=== PATIENT | female | born 1970 | race Two or more races ===

== ENCOUNTER 2022-10-03 16:01 | Emergency (ER) | payer MEDICAID ==
[~2022-10-03] VITALS: Ht 167.6 cm; Wt 124.1 kg
[2022-10-03 16:31] VITALS: BP 127/91
[2022-10-03] MEDS ORDERED: cefTRIAXone SOD 1,000 MG VL IM ONE (16:45)
[2022-10-03] MEDS ORDERED: CEPH500C PO (17:01)
[2022-10-03] MEDS ORDERED: LIDO2SOL26 MT (17:01)
[2022-10-03] MEDS ORDERED: TRIA0.1O TOP (17:01)
== END 2022-10-03 17:28 | disposition home or self-care (01) ==
LOC: ER 16:01
DX: J03.90 Acute tonsillitis, unspecified (principal); L30.1 Dyshidrosis [pompholyx]
CPT/HCPCS: 96372; 99283; J0696

== ENCOUNTER 2024-08-20 15:20 | Emergency (ER) | payer BC, OTHER ==
[~2024-08-20] VITALS: Ht 172.7 cm; Wt 130.2 kg
[~2024-08-20 15:20] MED LIST: CEPH500C PO; LIDO2SOL26 MT; TRIA0.1O TOP
--- NOTE | 2024-08-20 16:12 | ED.PDOC ---
HPI (NEURO) HPI Comments 53 year old female presents to the ED with chief complaint of high blood pressure. Patient reports that she has been experiencing dizziness with associated headache for the past 2 weeks. Patient relays that she visited urgent care today for a new complaint of blurred vision that occurred, however, she was advised to come to the ED after having a BP in the 170s systolically. Patient states they gave her 0.2mg of Clonidine and since then she has had mild relief in her blurred vision and dizziness. Patient denies being admitted at this time due to not having anyone to take care of her children as of now. Patient denies any SOB, nausea, chest pain, fever, chills, or chest pain. Time Seen by MD: 16:01 Primary Care Provider: NONE Reviewed Notes: Nurses Notes, Medications, Allergies Information Source: Patient Mode of Arrival: Ambulatory Severity: Mild Dizziness/Weakness Severity: Does not affect activitie Headache Severity: Moderate Timing: Days Duration: Since onset Prehospital treatment: None Seizure Quality: Shaking Headache Quality: Aching Headache Location: Generalized Onset: At rest Circumstances: Spontaneous Symptoms: Other (Dizzy) History of: None Associated Signs and Symptoms: Headache Past Medical History PAST MEDICAL HISTORY: Denies Surgical History: Denies all surgeries HEALTH EDITOR History: Denies all HEALTH EDITOR Hx Family History Family History: Reviewed,noncontributory to illness Social History Smoker: Non-Smoker Alcohol: Denies ETOH Use Drugs: Denies Drug Use Lives In: Home Constitutional: denies: chills, diaphoresis, fatigue, fever, malaise, sweats, weakness, others EENTM: reports: blurred vision; denies: double vision, ear bleeding, ear discharge, ear drainage, ear pain, ear ringing, eye pain, eye redness, hearing loss, mouth pain, mouth swelling, nasal discharge, nose bleeding, nose congestion, nose pain, photophobia, tearing, throat pain, throat swelling, voice changes, others Respiratory: denies: cough, hemoptysis, orthopnea, SOB at rest, shortness of breath, SOB with excertion, stridor, wheezing, others Cardiovascular: denies: chest pain, dizzy spells, diaphoresis, Dyspnea on exertion, edema, irregular heart beat, left arm pain, lightheadedness, palpitations, PND, syncope, others Gastrointestinal: denies: abdomen distended, abdominal pain, blood streaked bowels, constipated, diarrhea, dysphagia, difficulty swallowing, hematemesis, melena, nausea, poor appetite, poor fluid intake, rectal bleeding, rectal pain, vomiting, others Genitourinary: denies: abnormal vagina bleeding, burning, dyspareunia, dysuria, flank pain, frequency, hematuria, incontinence, pain, , vagina discharge, urgency, others Neurological: reports: dizziness, headache; denies: fainting, left sided numbness, left sided weakness, numbness, paresthesia, pre-existing deficit, right sided numbness, right sided weakness, seizure, speech problems, tingling, tremors, weakness, others Musculoskeletal: denies: back pain, gout, joint pain, joint swelling, muscle pain, muscle stiffness, neck pain, others Integumetry: denies: bruises, change in color, change in hair/nails, dryness, laceration, lesions, lumps, rash, wounds, others Allergic/Immunocompromised: denies: Difficulty Healing, Frequent Infections, Hives, Itching, others Hematologic/Lymphatic: denies: anemia, blood clots, easy bleeding, easy bruising, swollen glands, others Endocrine: denies: excessive hunger, excessive sweating, excessive thirst, excessive urination, flushing, intolerance to cold, intolerance to heat, unexplained weight gain, unexplained weight loss, others Psychiatric: denies: anxiety, bipolar disorder, depression, hopeless, panic disorder, schizophrenia, sleepless, suicidal, others All Other Systems: Reviewed and Negative Physical Exam General Appearance: No Apparent Distress, Normal HEENT: Normal ENT Inspection, Pharynx Normal, TMs Normal Neck: Full Range of Motion, Non-Tender, Normal, Normal Inspection Respiratory: Chest Non-Tender, Lungs Clear, No Accessory Muscle Use, No Respiratory Distress, Normal Breath Sounds Cardiovascular: No Edema, No JVD, No Murmur, No Gallop, Normal Peripheral Pulses, Regular Rate/Rhythm Breast Exam: Deferred Gastrointestinal: No Organomegaly, Non Tender, No Pulsatile Mass, Normal Bowel Sounds, Soft Genitalia: Deferred Pelvic: Deferred Rectal: Deferred Extremities: No calf tenderness, Normal capillary refill, Normal inspection, Normal range of motion, Non-tender, No pedal edema Musculoskeletal : Apperance: Normal Neurologic: Alert, sheet folder II-XII nml as Tested, No Motor Deficits, Normal Affect, Normal Mood, No Sensory Deficits Cerebellar Function: Normal Reflexes: Normal Skin: Dry, Normal Color, Warm Lymphatic: No Adenopathy Was a procedure done? Was a procedure done?: No X-Ray, Labs, Meds, VS Vital Signs Date Time Temp Pulse Resp B/P (MAP) Pulse Ox O2 Delivery O2 Flow Rate FiO2 08/20/24 16:15 98.1 68 19 159/87 (111) 97 98.1 Lab Test 08/20/24 16:30 08/20/24 16:06 Range/Units White Blood Count 9.5 4.4-10.8 10^3/uL Red Blood Count 5.04 4.0-5.20 10^6/uL Hemoglobin 13.7 12.2-16.2 g/dL Hematocrit 41.9 36.0-46.0 % Mean Corpuscular Volume 83.1 80.0-100.0 fL Mean Corpuscular Hemoglobin 27.2 L 28.0-32.0 pg Mean Corpuscular Hemoglobin Concent 32.7 32.0-36.0 g/dL Red Cell Distribution Width 16.6 H 11.8-14.3 % Platelet Count 323 140-450 10^3/uL Mean Platelet Volume 7.2 6.9-10.8 fL Neutrophils (%) (Auto) 62.4 37.0-80.0 % Lymphocytes (%) (Auto) 25.1 10.0-50.0 % Monocytes (%) (Auto) 9.4 0.0-12.0 % Eosinophils (%) (Auto) 2.3 0.0-7.0 % Basophils (%) (Auto) 0.8 0.0-2.0 % Neutrophils # (Auto) 5.9 1.6-8.6 10 ^3/uL Lymphocytes # (Auto) 2.4 0.4-5.4 10 ^3/uL Monocytes # (Auto) 0.9 0-1.3 10 ^3/uL Eosinophils # (Auto) 0.2 0-0.8 10 ^3/uL Basophils # (Auto) 0.1 0-0.2 10 ^3/uL Nucleated Red Blood Cells 0.2 % Sodium Level 144 136-145 mmol/L Potassium Level 3.8 3.5-5.1 mmol/L Chloride Level 109 H 98-107 mmol/L Carbon Dioxide Level 29 20-31 mmol/L Anion Gap 6 5-15 Blood Urea Nitrogen 14 9-23 mg/dL Creatinine 0.90 0.550-1.02 mg/dL Glomerular Filtration Rate Calc 77 >90 mL/min BUN/Creatinine Ratio 15.6 10.0-20.0 Serum Glucose 93 74-106 mg/dL Calcium Level 9.4 8.7-10.4 mg/dL POC Glucose 109 H 70-106 mg/dl CT head: FINDINGS: BRAIN AND EXTRA-AXIAL SPACES: Unremarkable. No hemorrhage. No significant white matter disease. No edema. No ventriculomegaly. BONES/JOINTS: Unremarkable. No acute fracture. SOFT TISSUES: Unremarkable. SINUSES: Unremarkable as visualized. No acute sinusitis. MASTOID AIR CELLS: Unremarkable as visualized. No mastoid effusion. OTHER FINDINGS: . None. IMPRESSION: No acute intracranial hemorrhage, midline shift or mass effect. 53 year old F here from urgent care blurry vision and dizziness. She was found to have blood pressure in the 170 systolic over 101. She was given clonidine 0.2 mg p.o. while there. I received a call from the urgent care practitioner. At this time blood work has been done. CBC BMP are within normal limits. Visual acuity with done by myself although she reports blurry vision she is 2020 in both eyes together and also 2020 in her right eye and 2020 in her left eye. She states since clonidine was given her dizziness and blurry vision is improving. A CT scan of the brain was done which is unremarkable. I re- evaluated the patient at 5:30 p.m.. She states blurry vision and dizziness has completely resolved. I did offer her admission however she refused stating she has young children at home and she can not state. I do not know what her blood pressure normally stays as she does not know either, therefore I will be starting her on HCTZ low dose and I sent it to her pharmacy. I have advised her to keep a journal of her blood pressure and monitor her blood pressure as she does have a blood pressure of admission patient agreeable. Daughter at the bedside also agrees with plan. They are to follow up with the PCP. Patient is to return if symptoms worsen or persist. Images Reviewed?: Images reviewed and evaluated by me Time of 1ST Reevaluation: 17:01 Reevaluation 1ST: Unchanged Time of 2ND Reevaluation: 17:42 Reevaluation 2ND: Improved Patient Education/Counseling: Diagnosis, Treatment Family Education/Counseling: No Family Present Departure 1 Departure Time of Disposition: 17:30 Impression: Primary Impression: Hypertensive emergency Disposition: 01 HOME / SELF CARE / HOMELESS Condition: Fair Additional Instructions: Follow up with the primary care physician in 2 3 days. Return to the ER if symp toms worsen or persist keep a journal of your blood pressure is daily. e-Prescriptions Hctz (Hydrochlorothiazide) 25 Mg Tab 25 MG PO DAILY, #30 TAB Prov: LEIDY KEYES MD 08/20/24 Critical Care Note Critical Care Time?: Yes (35 min-critical care time only) Critical care comment: 35 min. frequent reevals. concern for immediate deterioration Stability Stability form required: No Heart Score Heart Score: Heart Score Response (Comments) Value History N/A 0 EKG N/A 0 Age N/A 0 Risk Factors N/A 0 Troponin N/A 0 Total 0 I personally scribed for LEIDY KEYES MD ([email or web address]) on 08/20/24 at 16:12. Electronically submitted by Fransico Whitehead ([email or web address]). I personally scribed for LEIDY KEYES MD ([email or web address]) on 08/20/24 at 16:51. Electronically submitted by Fransico Whitehead ([email or web address]). LEIDY KEYES MD Aug 20, 2024 16:12
[2024-08-20 16:15] VITALS: BP 159/87; PULSE 68; RESP 19; TEMP 98.1; O2SAT 97
[2024-08-20 16:43] LABS: Basophils # (auto) 0.1 10 ^3/uL (0-0.2); Basophils % (auto) 0.8 % (0.0-2.0); Eosinophils # (auto) 0.2 10 ^3/uL (0-0.8); Eosinophils % (auto) 2.3 % (0.0-7.0); Hematocrit 41.9 % (36.0-46.0); Hemoglobin 13.7 g/dL (12.2-16.2); Lymphocytes # (auto) 2.4 10 ^3/uL (0.4-5.4); Lymphocytes % (auto) 25.1 % (10.0-50.0); Mean Corpuscular Hemoglobin 27.2 pg (28.0-32.0); Mean Corpuscular Hgb Conc. 32.7 g/dL (32.0-36.0); Mean Corpuscular Volume 83.1 fL (80.0-100.0); Monocytes # (auto) 0.9 10 ^3/uL (0-1.3); Monocytes % (auto) 9.4 % (0.0-12.0); Neutrophils # (auto) 5.9 10 ^3/uL (1.6-8.6); Neutrophils % (auto) 62.4 % (37.0-80.0); Nucleated Red Blood Cells % 0.2 %; Platelet Count (auto) 323 10^3/uL (140-450); Red Blood Cells 5.04 10^6/uL (4.0-5.20); Red Cell Distribution Width 16.6 % (11.8-14.3); White Blood Cell 9.5 10^3/uL (4.4-10.8)
--- NOTE | 2024-08-20 16:44 | DVH ---
EXAM: CT Head Without Intravenous Contrast CLINICAL INDICATION: tia/dizziness TECHNIQUE: Axial computed tomography images of the head/brain without intravenous contrast. This CT exam was performed using one or more of the following dose reduction techniques: automated exposure control, adjustment of the mA and/or kV according to patient size, and/or use of iterative reconstru ction technique. CONTRAST: COMPARISON: None FINDINGS: BRAIN AND EXTRA-AXIAL SPACES: Unremarkable. No hemorrhage. No significant white matter disease. No edema. No ventriculomegaly. BONES/JOINTS: Unremarkable. No acute fracture. SOFT TISSUES: Unremarkable. SINUSES: Unremarkable as visualized. No acute sinusitis. MASTOID AIR CELLS: Unremarkable as visualized. No mastoid effusion. OTHER FINDINGS: . None. IMPRESSION: No acute intracranial hemorrhage, midline shift or mass effect.
[2024-08-20 16:52] LABS: Potassium 3.8 mmol/L (3.5-5.1); Sodium 144 mmol/L (136-145)
[2024-08-20 16:53] LABS: Anion Gap 6 (5-15); Carbon Dioxide 29 mmol/L (20-31)
[2024-08-20 16:54] LABS: Calcium 9.4 mg/dL (8.7-10.4)
[2024-08-20 16:55] LABS: Chloride 109 mmol/L (98-107)
[2024-08-20 16:59] LABS: BUN/Creatinine Ratio 15.6 (10.0-20.0); Blood Urea Nitrogen 14 mg/dL (9-23); Glucose 93 mg/dL (74-106)
[2024-08-20] MEDS ORDERED: HYDR25TA5 PO (17:49)
== END 2024-08-20 18:27 | disposition home or self-care (01) ==
LOC: ER 15:20
DX: I16.1 Hypertensive emergency (principal); R51.9 Headache, unspecified; R42 Dizziness and giddiness
CPT/HCPCS: 36415; 70450; 80048; 82947; 82962; 85025

== ENCOUNTER 2024-08-23 18:28 | Emergency (ER) | payer BC, OTHER ==
[~2024-08-23] VITALS: Ht 172.7 cm; Wt 132.6 kg
[~2024-08-23 18:28] MED LIST changes: +HYDR25TA5 PO
[2024-08-23 18:43] VITALS: BP 142/90; PULSE 71; RESP 20; TEMP 97.8; O2SAT 98
== END 2024-08-23 18:55 | disposition left against medical advice (07) ==
LOC: ER 18:28
DX: I10 Essential (primary) hypertension (principal); Z53.21 Procedure and treatment not carried out due to patient leaving prior to being seen by health care provider

== ENCOUNTER 2024-12-28 17:49 | Emergency (ER) | payer BC, OTHER ==
[~2024-12-28] VITALS: Ht 170.2 cm; Wt 136.7 kg
[2024-12-28] MEDS ORDERED: KETOROLAC TROMETH 30 MG/ML 1ML VIAL IV ONE (18:45)
[2024-12-28 19:07] LABS: Hematocrit 40.5 % (36.0-46.0); Hemoglobin 13.5 g/dL (12.2-16.2); Mean Corpuscular Hemoglobin 27.5 pg (28.0-32.0); Mean Corpuscular Volume 82.1 fL (80.0-100.0); Nucleated Red Blood Cells % 0.0 %
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
[2024-12-28 19:18] LABS: Alanine Aminotransferase 25 U/L (7-40); Albumin 4.1 g/dL (3.2-4.8); Alkaline Phosphatase 105 U/L (46-116); Anion Gap 9 (5-15); BUN/Creatinine Ratio 11.1 (10.0-20.0); Bilirubin, Total 0.3 mg/dL (0.2-1.0); Blood Urea Nitrogen 10 mg/dL (9-23); Calcium 8.8 mg/dL (8.7-10.4); Carbon Dioxide 27 mmol/L (20-31); Glucose 87 mg/dL (74-106); Potassium 3.6 mmol/L (3.5-5.1); Sodium 144 mmol/L (136-145); Total Protein 7.2 g/dL (5.7-8.2)
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
[2024-12-28 19:21] LABS: Chloride 108 mmol/L (98-107)
--- NOTE | 2024-12-28 19:25 | DVH ---
CLINICAL INDICATION: fall TECHNIQUE: 3 radiographic views of the left shoulder were obtained. Comparison: None FINDINGS/IMPRESSION: Bony alignment is normal. No fracture or dislocation. No abnormal soft tissue calcification.
[2024-12-28 20:07] VITALS: BP 122/76; O2SAT 96
[2024-12-28] MEDS: ONDANSETRON HCL 4 MG/2 ML VIAL IV ONE (20:31)
[2024-12-28 20:56] VITALS: TEMP 98.3
[2024-12-28] MEDS: ACETAMINOPHEN 325 MG TAB PO ONE (20:56)
[2024-12-28] MEDS: KETOROLAC TROMETH 30 MG/ML 1ML VIAL IM ONE (20:56)
[2024-12-28 21:03] VITALS: PULSE 73; RESP 18
== END 2024-12-28 21:06 | disposition home or self-care (01) ==
LOC: ER 17:49
DX: M25.512 Pain in left shoulder (principal); R11.2 Nausea with vomiting, unspecified; H53.8 Other visual disturbances; R42 Dizziness and giddiness; M54.2 Cervicalgia; R51.9 Headache, unspecified; Z79.899 Other long term (current) drug therapy; V43.52XA Car driver injured in collision with other type car in traffic accident, initial encounter; Y93.I9 Activity, other involving external motion; Y92.488 Other paved roadways as the place of occurrence of the external cause; Y99.8 Other external cause status
CPT/HCPCS: 36415; 70450; 73030; 80053; 85025; 96372; 99285; J1885